=== PATIENT | male | born 1965 | race Two or more races ===

== ENCOUNTER 2019-07-27 09:54 | Day surgery (SDC) | payer OTHER ==
[2019-07-24 10:00] VITALS: BMI 23.6
[2019-07-27] MEDS ORDERED: BUPIVACAINE HCL/PF 0.5% (5MG/ML) 10 ML VIAL ONE (10:35)
[2019-07-27] MEDS ORDERED: LIDOCAINE HCL 1%, 10 MG/ML (20ML VIAL) ONE (12:01)
[2019-07-27] MEDS ORDERED: BUPIVACAINE HCL/PF 0.5% (5 MG/ML) 30 ML VIAL IJ ONE (12:02)
[2019-07-27] MEDS ORDERED: MIDAZOLAM HCL 2 MG/2 ML SINGLE DOSE VIAL ONE ×2 (12:02→12:32)
[2019-07-27] MEDS ORDERED: PROPOFOL 20 ML ONE ×2 (12:07)
[2019-07-27] MEDS ORDERED: SUCCINYLCHOLINE CHLORIDE 200 MG/10 ML SYRINGE ONE (12:08)
[2019-07-27] MEDS ORDERED: ROCURONIUM BROMIDE 50 MG/5 ML SYRINGE ONE (12:08)
[2019-07-27] MEDS ORDERED: oxyCODONE HCL 5 MG TABLET PO PRN (12:13)
[2019-07-27] MEDS ORDERED: ONDANSETRON 4 MG/2 ML VIAL IVPUSH PRN (12:13)
[2019-07-27] MEDS ORDERED: PROMETHAZINE HCL 25 MG/1 ML VIAL IVPUSH PRN (12:13)
[2019-07-27] MEDS ORDERED: LACTATED RINGERS SOLUTION 1,000 ML IV SCH (12:15)
--- NOTE | 2019-07-27 12:17 | HP ---
Admitting History and Physical - Admission Chief Complaint: Right inguinal hernia History of Present Illness: 54yo M presents for Right inguinal hernia repair, after having worsening size and symptoms with hernia. 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: No: Alzheimer's, CVA, Dementia, Migraine, Multiple Sclerosis, Peripheral Neuropathy, Parkinson's, Seizure, Syncope, TIA, Vertigo, Other Cardiovascular: No: AFIB, Aneurysm, Aortic Insufficiency, Aortic Stenosis, CAD, CHF, Deep Vein Thrombosis, HTN, Hyperlipdemia, PA, Mitral Insufficiency, Mitral Stenosis, Murmur, Pulmonary Hypertension, Other Pulmonary: No: Asthma, Bronchitis, Cancer, COPD, O2 Dependent, Pneumonia, Previously Intubated, Pulmonary Embolus, Pulmonary Fibrosis, Sleep Apnea, Other Gastrointestinal: No: Ascites, Cancer, Constipation, Crohn's Disease, Diverticulitis, Diverticulosis, Esophageal Varices, Gastritis, GERD, GI Bleed, Hemorrhoids, Hiatal Hernia, Inflamatory Bowel Disease, Irritable Bowel Disease, Pancreatitis, Peptic Ulcer Disease, Ulcerative Colitis, Other - Past Surgical History Past Surgical History: Yes: Hernia Repair - Smoking History Smoking history: Former smoker Have you smoked in the past 12 months: No If you are a former smoker, when did you quit?: MANY YRS AGO - Alcohol/Substance Use Hx Alcohol Use: Yes (SOCIALLY) Number of Drinks Daily: 6 History of Substance Use: reports: None - Social History ADL: Independent 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
[2019-07-27] MEDS ORDERED: LIDOCAINE HCL/PF 2% SDV 5ML VIAL ONE (12:50)
[2019-07-27] MEDS ORDERED: ceFAZolin SODIUM 1 GM VIAL ONE (12:57)
[2019-07-27] MEDS ORDERED: DEXAMETHASONE SOD PHOSPHATE 4 MG/1 ML VIAL ONE (12:59)
[2019-07-27] MEDS ORDERED: KETOROLAC TROMETHAMINE 30 MG/1 ML VIAL ONE (13:01)
[2019-07-27] MEDS ORDERED: LIDOCAINE HCL 1%, 10 MG/ML (20ML VIAL) NR ONE (13:12)
[2019-07-27] MEDS ORDERED: BUPIVACAINE HCL/PF 0.5% (5MG/ML) 10 ML VIAL IJ ONE (13:12)
[2019-07-27] MEDS ORDERED: NEOSTIGMINE METHYLSULFATE 0.5 MG/ML - 10 ML MDV ONE (13:39)
[2019-07-27] MEDS ORDERED: GLYCOPYRROLATE 0.2 MG/1 ML VIAL ONE (13:39)
--- NOTE | 2019-07-27 14:02 | OP ---
Operative Note - Note: Operative Date: 07/27/19 Pre-Operative Diagnosis: Right inguinal hernia Operation: Open Right inguinal hernia repair with mesh Post-Operative Diagnosis: Same as Pre-op Surgeon: Guido More Poultry Veterinarian: Gabriel Schafer Anesthesiologist/CORE FILER: Dameon Vee Anesthesia: General Estimated Blood Loss (mls): 5 Operative Report Dictated: Yes
--- NOTE | 2019-07-27 14:03 | SURG ---
Surgery Accounting Consultant Note Accounting Consultant: Gabriel Schafer PA-C Date of Service: 07/27/19 Diagnosis: Right inguinal hernia Procedure: Open Right inguinal hernia repair with mesh I was present for the entirety of the operative procedure. For further detail, please refer to operative report. Visit type - Case Type Case Type: Scheduled - Emergency Emergency Visit: No - New patient This patient is new to me today: Yes Date on this admission: 07/27/19 - Critical Care Critical Care patient: No
[2019-07-27 15:48] VITALS: PULSE 68; TEMP 97.8
[2019-07-27 16:00] VITALS: BP 139/89
--- NOTE | 2019-07-28 13:38 | OP ---
DATE OF OPERATION: 07/27/2019 PREOPERATIVE DIAGNOSIS: Right inguinal hernia. POSTOPERATIVE DIAGNOSIS: Right inguinal hernia. PROCEDURE: Repair right inguinal with Parietex ProGrip mesh. SURGEON: Guido More MD DEPUTY CORONER: KIRAN eBnavides ANESTHESIA: General. OPERATIVE FINDINGS: There was a small, indirect, right inguinal hernia and a large lipoma of the cord and a direct hernia as well. The rest of the findings were unremarkable. DESCRIPTION OF PROCEDURE: The patient was placed on the operating table in supine position. After the induction of general anesthesia, the patient's right groin and lower abdomen were prepped with ChloraPrep and draped in sterile fashion. A time-out was taken and a transverse groin incision mapped out on the right side. Incision was made with a scalpel and taken down through skin and subcutaneous tissue and Lonnie fascia. The external oblique fascia was divided proximally and distally in the direction of its fibers and through the external ring. The cord structures and nerve were elevated at the level of the pubic tubercle and a Home drain placed around them for retraction and identification purposes. Blunt dissection was started in the substance of the cord where an indirect sac was identified. It was traced up to the internal ring where it was opened revealing no incarcerated intra-abdominal contents. High ligation was carried out with 2-0 Vicryl suture and then the redundant sac was excised and sent for pathological examination. The lipoma was mobilized up to the internal ring, clamped, excised, and sent for pathological examination as well and its pedicle ligated with 2-0 Vicryl suture. Next, the floor of the inguinal canal was repaired by fashioning a piece of Parietex ProGrip mesh into the defect and anchoring it at the pubic tubercle shelving edge and conjoint tendon respectively with interrupted 2-0 Prolene. A keyhole was created for the cord structures and the tails of the mesh brought above the level of the internal ring and crossed and placed under the external oblique fascia. The tails of the mesh were anchored with interrupted 2-0 Prolene. Hemostasis was checked for and noted to be good and then the wound was copiously irrigated with sterile saline. Hemostasis was again verified and then the cord structures and nerve returned to their normal anatomic position and the external oblique fascia closed using continuous 2-0 Vicryl recreating the external ring. Lonnie fascia was reapproximated with interrupted 2-0 Vicryl, the deep dermis with interrupted 3-0 Vicryl, and the skin edges with 4-0 Monocryl in a subcuticular, continuous fashion. Steri-Strips, fluffs, and a Tegaderm dressing were placed and the procedure terminated at this point and the patient aroused from general anesthesia and transferred to the post anesthesia care unit in stable condition awake and alert. ESTIMATED BLOOD LOSS: 5 mL. REPLACEMENT: Crystalloid. DRAINS: None. SPECIMENS: Portion of hernia sac and lipoma to Pathology. I, Guido More, was physically present in the operating room from the time the patient was placed on the operating room table until he was transferred to the post anesthesia care unit in [employer]. MD RACHAEL Eastman/[id number] MTDD
--- NOTE | 2019-07-29 18:27 | PATH ---
Surgical Pathology Report Patient Name: GUTIERREZ SALAZAR Med. Rec. #: [id number] /Age/Gender: 1965 (Age: 54) / M Account: [id number] Location: [facility] Taken: 07/27/2019 Received: 07/27/2019 Reported: 07/29/2019 Physicians: Guido More MD Specimen(s) Received LIPOMA Clinical History Right inguinal hernia Final Diagnosis "LIPOMA", RIGHT, OPEN INGUINAL HERNIA REPAIR WITH MESH: HERNIA SAC AND MATURE FIBROADIPOSE TISSUE CONSISTENT WITH CORD LIPOMA. Electronically Signed Michelle Gauthier M.D. Gross Description Received in formalin labeled "lipoma" is a yellow fibroadipose tissue and adherent fibromembranous tissue measuring 4.5 x 3 x 2 cm. Cut section is yellow and unremarkable. Assistant Professor Of Spanish section is submitted in one cassette MLSZ/07/28/2019 san/07/28/2019
== END 2019-07-27 15:55 | disposition home or self-care (01) ==
LOC: FASU 09:54
PROVIDERS: ATTEND Surgery
PROC: 0YU50JZ Supplement Right Inguinal Region with Synthetic Substitute, Open Approach (ICD-10-PCS; principal; 2019-07-27 12:00)
DX: K40.90 Unilateral inguinal hernia, without obstruction or gangrene, not specified as recurrent (principal)
CPT/HCPCS: 88302-TC; 94760

== ENCOUNTER 2020-12-26 09:17 | Emergency (ER) | payer OTHER ==
[2020-12-26 09:29] VITALS: BP 132/98; PULSE 98; TEMP 97.7; BMI 23.6
[2020-12-26] MEDS ORDERED: TETRACAINE 0.5% HCL 0.6ML DROPPER.BOTTLE OD ONE (09:55)
[2020-12-26] MEDS ORDERED: KETOROLAC TROMETHAMINE 30 MG/1 ML VIAL IM ONE (09:56)
[2020-12-26] MEDS ORDERED: TETRACAINE 0.5% OPHTH SOLN 2 ML BOTTLE ONE (10:01)
[2020-12-26] MEDS ORDERED: KETOROLAC TROMETHAMINE 30 MG/1 ML VIAL ONE (10:01)
[2020-12-26] MEDS ORDERED: ONDANSETRON *ODT* 4 MG TABLET SL ONE (10:10)
[2020-12-26] MEDS ORDERED: ONDANSETRON *ODT* 4 MG TABLET ONE (10:11)
== END 2020-12-26 11:46 | disposition home or self-care (01) ==
LOC: JER 09:17
PROC: 3E0233Z Introduction of Anti-inflammatory into Muscle, Percutaneous Approach (ICD-10-PCS; principal; 2020-12-26)
DX: H57.11 Ocular pain, right eye (principal)
CPT/HCPCS: 76512; 99284-25; Q0162